=== PATIENT | female | born 1940 | race Caucasian/White ===

== ENCOUNTER 2021-08-15 13:12 | Outpatient (REF) | payer MEDICARE, SELFPAY ==
--- NOTE | ~2021-08-15 | MM_ITS ---
EXAMINATION: MM SCREENING DIGITAL BREAST TOMOSYNTHESIS, BILATERAL CLINICAL INFORMATION: Screening. Asymptomatic. The lifetime risk of breast cancer based on the Tyrer-Cuzick Model is 4%. COMPARISON: Mammography: 07/15/2020, 06/14/2019, 05/31/2019, 06/04/2017 TECHNIQUE: Digital breast tomosynthesis is performed in both the craniocaudal and mediolateral oblique views along with computer-aided detection (CAD). Synthesized 2D images are generated from the tomosynthesis. FINDINGS: There are scattered areas of fibroglandular density (ACR BI-RADS breast composition Category b). There are no significant masses, abnormal calcifications, or other abnormalities. There are scattered bilateral benign round and rim calcifications. The axilla and skin contours are unremarkable. No significant changes. MM/MM tomosynthesis screening BI IMPRESSION: No mammographic evidence of malignancy. ASSESSMENT: BI-RADS 1: Negative RECOMMENDATION: Routine annual mammography screening. This patient's information was entered into a reminder system with a target due date for their next mammogram.
== END 2021-08-15 13:13 | disposition home or self-care (01) ==
LOC: HO.MAMMO 13:12
PROVIDERS: PCP Internal Medicine; Visit Provider Family Medicine
DX: Z12.31 Encounter for screening mammogram for malignant neoplasm of breast (principal)
CPT/HCPCS: 77063; 77067

== ENCOUNTER 2021-10-20 09:25 | Outpatient (REF) | payer MEDICARE, SELFPAY ==
[2021-10-20 10:06] LABS: Binax Internal Control QC Valid; Binax Lot number: 9864; Binax Now Covid-19 Ag Negative (Negative)
== END 2021-10-20 09:26 | disposition home or self-care (01) ==
LOC: HO.LAB 09:25
PROVIDERS: Visit Provider Internal Medicine
DX: Z20.822 Contact with and (suspected) exposure to COVID-19 (principal)
CPT/HCPCS: 36415; C9803

== ENCOUNTER 2022-08-20 12:47 | Outpatient (REF) | payer MEDICARE, SELFPAY ==
--- NOTE | ~2022-08-20 | MM_ITS ---
EXAMINATION: MM SCREENING DIGITAL BREAST TOMOSYNTHESIS, BILATERAL CLINICAL INFORMATION: Screening. Asymptomatic. The lifetime risk of breast cancer based on the Tyrer-Cuzick Model is 3%. COMPARISON: Mammography: August 15, 2021 and studies dating back to July 07, 2015 TECHNIQUE: Digital breast tomosynthesis is performed in both the craniocaudal and mediolateral oblique views along with computer-aided detection (CAD). Synthesized 2D images are generated from the tomosynthesis. FINDINGS: There are scattered areas of fibroglandular density (ACR BI-RADS breast composition Category b). There are no significant masses, abnormal calcifications, or other abnormalities. MM/MM tomosynthesis screening BI IMPRESSION: No significant changes from prior exam. ASSESSMENT: BI-RADS 1: Negative RECOMMENDATION: Routine annual mammography screening. This patient's information was entered into a reminder system with a target due date for their next mammogram.
== END 2022-08-20 12:48 | disposition home or self-care (01) ==
LOC: HO.MAMMO 12:47
PROVIDERS: PCP Family Medicine; Visit Provider Family Medicine
DX: Z12.31 Encounter for screening mammogram for malignant neoplasm of breast (principal)
CPT/HCPCS: 77063; 77067

== ENCOUNTER 2023-08-22 13:22 | Outpatient (REF) | payer MEDICARE, OTHER, SELFPAY ==
--- NOTE | ~2023-08-22 | MM_ITS ---
EXAMINATION: MM SCREENING DIGITAL BREAST TOMOSYNTHESIS, BILATERAL CLINICAL INFORMATION: Screening. Asymptomatic. COMPARISON: Mammography: This study is compared with prior exams dating back to 2017. TECHNIQUE: Digital breast tomosynthesis is performed in both the craniocaudal and mediolateral oblique views along with computer-aided detection (CAD). Synthesized 2D images are generated from the tomosynthesis. FINDINGS: There are scattered areas of fibroglandular density (ACR BI-RADS breast composition Category b). There are no significant masses, abnormal calcifications, or other abnormalities. Bilateral, coarse, benign calcifications are present. MM/MM tomosynthesis screening BI IMPRESSION: No mammographic evidence of malignancy. ASSESSMENT: BI-RADS BI-RADS 2 - Benign Findings RECOMMENDATION: Routine annual mammography screening. 1 year F/U This examination should not preclude the clinical evaluation of a suspicious palpable abnormality. This patient's information was entered into a reminder system with a target due date for their next mammogram.
== END 2023-08-22 13:23 | disposition home or self-care (01) ==
LOC: HO.MAMMO 13:22
PROVIDERS: Visit Provider Family Medicine
DX: Z12.31 Encounter for screening mammogram for malignant neoplasm of breast (principal)
CPT/HCPCS: 77063; 77067

== ENCOUNTER → 2023-08-22 13:30 | Outpatient (BNV) | payer MEDICARE, OTHER, SELFPAY | PROVIDERS: Visit Provider Radiology Diagnostic Radiology | DX: Z12.31 Encounter for screening mammogram for malignant neoplasm of breast (principal) | CPT/HCPCS: 77063; 77067 ==

== ENCOUNTER 2023-09-30 15:33 | Inpatient (IN) | payer MEDICARE, OTHER, SELFPAY ==
--- NOTE | ~2023-09-30 | CT_ITS ---
head EXAMINATION: CT HEAD WITHOUT CONTRAST CT CERVICAL SPINE WITHOUT CONTRAST CLINICAL INFORMATION: Fall. COMPARISON: No similar priors. TECHNIQUE: Contiguous axial imaging was performed from the skull base to vertex without intravenous administration of contrast. Contiguous axial imaging was performed from the upper chest through the skull base without intravenous administration of contrast. Coronal and sagittal reformats were obtained at the acquisition workstation. This CT examination was performed using dose optimization techniques as appropriate, variously including the following: *Automated exposure control *Adjustment of mA and/or kV according to patient size (this includes techniques or standardized protocols for targeted exams where dose is matched to indication/reason for exam; i.e. extremities or head) *Use of iterative reconstruction technique DLP: 617 and 189 mGy-cm FINDINGS: Head: Trace amount of subarachnoid blood products in the left greater than right frontal sulci, for instance images 16 and 19 series 11. There is no evidence of edematous territorial infarction. A few foci of hypoattenuation in the periventricular and deep white matter are consistent with mild microangiopathy. Parker-white matter differentiation is preserved. Proportional prominence of the ventricles and sulcal spaces. No evidence for obstructive hydrocephalus. No abnormal mass effect or midline shift. No extra-axial fluid collections. Large left frontoparietal scalp hematoma. No evidence of displaced calvarial fracture. Opacification of a right posterior ethmoid air cell. Other paranasal sinuses, mastoids and middle ear cavities are clear. Cervical Spine: Straightening of the cervical lordosis. Mild anterolisthesis of C3 on C4 and C4 on C5 most likely degenerative in nature. No evidence of acute compression deformity or traumatic subluxation. Moderate to severe multilevel cervical spondylosis with various degrees of neural foraminal encroachment and central canal stenosis, with the more robust facet arthropathy noted on the right side from C3 through C5. There is no prevertebral soft tissue swelling. The thyroid gland and remaining cervical soft tissues are normal in appearance. Very complex appearance of the right lung apex with calcifications/surgical sutures surrounded by multifocal thickening/airspace opacities and architectural distortion. CT/CT cervical spine wo IV con IMPRESSION: 1. Trace amount of subarachnoid blood products in the left greater than right frontal sulci. 2. Large left frontoparietal scalp hematoma. 3. No acute cervical fractures or traumatic subluxation. 4. Moderate to severe multilevel cervical spondylosis. 5. Very complex appearance of the right lung apex with calcifications/surgical sutures surrounded by multifocal thickening/airspace opacities and architectural distortion. Recommend further evaluation with a full diagnostic chest CT. This critical result was discussed with Dr. Fernandez at 09/30/2023 7:02 PM and it was ascertained that the content and urgency of the report was understood at the time of direct communication.
--- NOTE | ~2023-09-30 | CT_ITS ---
EXAMINATION: CT HEAD WITHOUT CONTRAST CLINICAL INFORMATION: Subarachnoid hemorrhage follow-up. COMPARISON: CT scan of the head 09/30/2023. TECHNIQUE: Contiguous axial imaging was performed from the skull base to vertex without intravenous administration of contrast. This CT examination was performed using dose optimization techniques as appropriate, variously including the following: *Automated exposure control *Adjustment of mA and/or kV according to patient size (this includes techniques or standardized protocols for targeted exams where dose is matched to indication/reason for exam; i.e. extremities or head) *Use of iterative reconstruction technique DLP: 589 mGy-cm FINDINGS: Again there is a small volume of acute blood layering within the sulci over the frontal convexities near the vertex. No clear evidence of new or worsening intracranial hemorrhage. No intracranial mass effect or midline shift. No hydrocephalus. Numerous foci of hypoattenuation are visualized within the periventricular white matter mostly represent a chronic manifestation of small vessel ischemia. Parker-white matter differentiation is otherwise preserved and there is no evidence of acute territorial infarct. The calvarium and skull base are intact. Mastoid air cells and middle ear cavities are well aerated. Mild paranasal sinus disease primarily affecting the ethmoid air cells. A laceration of the left frontal scalp is noted. CT/CT head/brain wo IV con IMPRESSION: The volume of acute subarachnoid blood within the sulci over the frontal convexities near the vertex remains grossly unchanged. No new or worsening hemorrhage. No evidence of acute territorial infarct. Numerous chronic small vessel ischemic changes are visualized within the periventricular white matter.
[2023-09-30 15:49] VITALS: BP 121/61; BP 122/86; PULSE 86; PULSE 89; RESP 18; TEMP 36.6; O2SAT 97; O2SAT 98; BMI 27.6
[2023-09-30 16:27] VITALS: BP 121/61; PULSE 89; RESP 18; TEMP 36.6; O2SAT 97
--- NOTE | 2023-09-30 17:40 | ED_ITS ---
HPI - Fall General Chief Complaint: Fall Stated Complaint: fell outside w/ head strike on the curb. +collared Time Seen by Provider: 09/30/23 16:02 Source: patient Mode of arrival: EMS Limitations: no limitations History of Present Illness HPI Narrative: Patient comes to the emergency room complaining of a fall. Patient states that she was outside walking up a couple of stairs, patient tripped, had a mechanical fall, hit her head on the curb. Patient did not lose consciousness, patient is not on blood thinners. Patient states that she feels fairly well, minimal pain anywhere. Of note, patient was recently diagnosed with normal pressure hydrocephalus. At this time, patient states that she has no headache, no neck pain, patient does have a laceration in the scalp but states that it does not hurt much. Patient denies any musculoskeletal pain. Related Data Allergies Allergy/AdvReac Type Severity Reaction Status Date / Time shellfish derived Allergy Unknown PROJECTILE Verified 09/30/23 15:58 [SHELLFISH DERIVED] VOMITING,ABD PAIN Sulfa (Sulfonamide Allergy Unknown CHILD- Verified 09/30/23 15:58 Antibiotics) PASSED [SULFA(SULFONAMIDE OUT ANTIBIOTICS)] Review of Systems 2 Review of Systems: Constitutional : No Weight loss, No Fever, No Chills, No Night Sweats, No Fatigue, No Malaise ENT/Mouth : No Hearing loss, No Ear Pain, No Nasal Congestion, No Sinus Pain, No Hoarseness, No sore throat, No Rhinorrhea, No Swallowing Difficulty Eyes: No Eye Pain, No Swelling, No Redness, No Foreign Body, No Discharge, No Vision Changes Cardiovascular : No Chest Pain, No SOB, No Dyspnea on Exertion, No Orthopnea, No Edema, No Palpitations Respiratory : No Cough, No Sputum, No Wheezing, No Smoke Exposure, No Dyspnea Gastrointestinal : No Nausea, No Vomiting, No Diarrhea, No Constipation, No abdominal Pain, No Hematochezia, No Melena Genitourinary : no irregular bleeding, No Dysuria, No Urinary Frequency, No Hematuria, No Urinary Incontinence, No Urgency, No Flank Pain, No Urinary Flow Changes, No Hesitancy Musculoskeletal : No joint pain, No Myalgias, No Joint Swelling Skin : Complaining of a laceration to the scalp on the left Neuro : No Weakness, No Numbness, No Paresthesias, No Loss of Consciousness, No Dizziness, No Headache Psych : No Anxiety/Panic, No Depression, No SI/HI/AH/VH, No Social Issues, Heme/Lymph: No Bruising, No Bleeding,No Lymphadenopathy Endocrine : No Polyuria, No Polydipsia, No Temperature Intolerance [facility] Past Medical History Medical History (Updated 09/30/23 @ 20:24 by Samia Fernandez MD) Normal pressure hydrocephalus Social History Social History Alcohol intake: never Smoked in Last 30 Days: No Use of substances other than those prescribed or required for medical reasons: No Advance Directives: No Advance Directives Information Provided: No Physical Exam 2 Vital Signs: Vital Signs: Last Vital Signs Temp 97.8 F 09/30/23 16:27 Pulse 68 09/30/23 18:11 Resp 18 09/30/23 18:11 BP 121/63 09/30/23 18:11 Pulse Ox 98 09/30/23 18:11 O2 Del Method Room Air 09/30/23 18:11 BMI result Body Mass Index 27.6 Const: Other: Appearance: Alert. Oriented X3. No acute distress. Eyes: Pupils equal, round and reactive to light. ENT: Pharynx normal. Neck: On C-spine precaution, no C-spine tenderness, no palpable step-offs CVS: Normal heart rate and rhythm. Pulses normal. Normal S1 and S2 Respiratory: No respiratory distress. Breath sounds normal. No Wheezing. No rales Abdomen: Soft and nontender. No rigidity. No distention. Skin: There is a 1 cm laceration to the scalp on the left, being controlled Extremities: No lower extremity edema. No Lacerations. No Rash Neuro: Oriented X 3. No motor deficit. No sensory deficit. Moving all extremities. No slurred speech. CN 2 through 12 grossly intact Psych: calm, cooperative, normal affect Procedures Laceration Laceration 1: Site: scalp Side (If applicable): left Size (cm): 1 Description: stellate and irregular Depth: simple, single layer Local Anesthetic: lidocaine 1% and with epi Amount of anesthesia used (mL): 3 Pre-repair: wound explored Skin layer closed with: nylon Size (cm): 5-0 Number of sutures: 3 Technique: simple, interrupted Medical Decision Making Medical Decision Making MDM Narrative: -patient received 3 stitches to the laceration in the scalp, bleeding stopped -my interpretation of CT scan , possible small subarachnoid bleed -I discussed the CT report with our radiologist on-call. Patient does have a trace subarachnoid bleed. -patient is completely asymptomatic, no neurological deficits, normal vitals. -I discussed the patient with Dr. Aguiar from the ICU, patient being admitted to the ICU Differential Diagnosis Differential Diagnoses: The differential diagnosis associated with the presentation includes (Laceration, contusion, concussion, subarachnoid bleed) Admission/Observation Consideration of admission/observation: Escalation of care including admission/observation considered Consult Healthcare Provider Management of the patient was discussed with: Hospitalist Lab Data [facility] Lab Attestation statement: I reviewed the patient's lab results. 09/30/23 19:40 09/30/23 19:39 Labs: Lab Results 09/30/23 09/30/23 Range/Units 19:39 19:40 WBC 7.3 (4.8-10.8) X10*3/uL RBC 3.93 L (4.20-5.50) X10*6/uL Hgb 11.6 L (12.0-16.0) g/dl Hct 35.8 L (37.0-47.0) % MCV 91.1 (80.0-98.0) fL MCH 29.5 (27.0-33.0) pg MCHC 32.4 (31.0-35.0) g/dl RDW 12.4 (11.0-16.0) % Plt Count 153 L (160-400) X10*3/uL MPV 10.4 (9.4-12.3) fL Immature Gran % (Auto) 0.4 (0.0-0.4) % Neut % (Auto) 80.9 H (45-73) % Lymph % (Auto) 12.7 L (20-40) % [place] % (Auto) 4.7 (2-11) % Eos % (Auto) 1.0 (0-4) % Baso % (Auto) 0.3 (0-2) % Lymph # (Auto) 0.9 L (1.2-4.9) X10*3/uL [place] # (Auto) 0.3 (0.1-1.2) X10*3/uL Eos # (Auto) 0.1 (0.0-0.4) X10*3/uL Baso # (Auto) 0.0 (0.0-0.2) X10*3/uL Abs Immat Gran (auto) 0.03 (0.00-0.03) X10*3/uL Absolute Neuts (auto) 5.9 (2.0-8.3) x10*3/uL Absolute Nucleated RBC 0.000 (0.0-0.012) X10*3/uL Nucleated RBC % (auto) 0.0 (0.0-0.2) /100WBC PT 12.7 (11.1-13.3) SEC INR 1.0 (0.9-1.1) APTT 31.8 (26.0-36.4) SEC Sodium 144 (135-145) mmol/L Potassium 3.6 (3.3-5.1) mmol/L Chloride 103 (96-108) mmol/L Carbon Dioxide 31 H (22-29) mmol/L Anion Gap 14 (12-20) BUN 18 H (9-16) mg/dL Creatinine 0.95 (0.5-1.4) mg/dL Estim Creat Clear Calc 50.5 Estimated GFR 56 Random Glucose 92 (60-115) mg/dL Calcium 9.3 (8.4-10.2) mg/dL Total Bilirubin 0.6 (0.0-1.0) mg/dL Direct Bilirubin 0.2 (0.0-0.5) mg/dL AST 22 (5-31) U/L ALT 7 (0-31) U/L Alkaline Phosphatase 89 (39-117) U/L Troponin I High Sens 13.7 (<3.5-17.0) ng/L Total Protein 7.3 (6.5-8.0) g/dL Albumin 3.8 (3.5-5.0) g/dL Independent Interpretation I performed an independent interpretation of an: CT Scan Radiology Impression Discussion of test interpretation with radiology: I have reviewed the radiologist's reading. Radiologist Impression: Head: Trace amount of subarachnoid blood products in the left greater than right frontal sulci, for instance images 16 and 19 series 11. There is no evidence of edematous territorial infarction. A few foci of hypoattenuation in the periventricular and deep white matter are consistent with mild microangiopathy. Parker-white matter differentiation is preserved. Proportional prominence of the ventricles and sulcal spaces. No evidence for obstructive hydrocephalus. No abnormal mass effect or midline shift. No extra-axial fluid collections. Large left frontoparietal scalp hematoma. No evidence of displaced calvarial fracture. Opacification of a right posterior ethmoid air cell. Other paranasal sinuses, mastoids and middle ear cavities are clear. Cervical Spine: Straightening of the cervical lordosis. Mild anterolisthesis of C3 on C4 and C4 on C5 most likely degenerative in nature. No evidence of acute compression deformity or traumatic subluxation. Moderate to severe multilevel cervical spondylosis with various degrees of neural foraminal encroachment and central canal stenosis, with the more robust facet arthropathy noted on the right side from C3 through C5. There is no prevertebral soft tissue swelling. The thyroid gland and remaining cervical soft tissues are normal in appearance. Very complex appearance of the right lung apex with calcifications/surgical sutures surrounded by multifocal thickening/airspace opacities and architectural distortion. CT/CT head/brain wo IV con IMPRESSION: 1. Trace amount of subarachnoid blood products in the left greater than right frontal sulci. 2. Large left frontoparietal scalp hematoma. 3. No acute cervical fractures or traumatic subluxation. 4. Moderate to severe multilevel cervical spondylosis. 5. Very complex appearance of the right lung apex with calcifications/surgical sutures surrounded by multifocal thickening/airspace opacities and architectural distortion. Recommend further evaluation with a full diagnostic chest CT. This critical result was discussed with Dr. Fernandez at 09/30/2023 7:02 PM and it was ascertained that the content and urgency of the report was understood at the time of direct communication. Critical Care Time Critical Care Time Critical Care Time: Yes Total Critical Care Time: 60 Attestation: I have personally provided critical care time. Time includes review of lab data, radiology results, discussion with consultants, and monitoring for potential decompensation. Intervention performed as documented. Discharge Plan Discharge Clinical Impression: Subarachnoid bleed, Laceration of scalp Patient Disposition: Admitted As Inpatient
[2023-09-30 18:11] VITALS: BP 121/63; PULSE 68; RESP 18; O2SAT 98
[2023-09-30 19:45] LABS: MANUAL DIFF FLAG NO
[2023-09-30 19:46] LABS: Basophils Percent Auto 0.3 % (0-2); Eosinophils Absolute Auto 0.1 X10*3/uL (0.0-0.4); Hematocrit 35.8 % (37.0-47.0); Hemoglobin 11.6 g/dl (12.0-16.0); Imm Gran Abs Auto 0.03 X10*3/uL (0.00-0.03); Imm Gran Pct Auto 0.4 % (0.0-0.4); Lymphocytes Absolute Auto 0.9 X10*3/uL (1.2-4.9); Lymphocytes Percent Auto 12.7 % (20-40); Mean Corpuscular HGB Conc 32.4 g/dl (31.0-35.0); Mean Corpuscular Hemoglobin 29.5 pg (27.0-33.0); Mean Corpuscular Volume 91.1 fL (80.0-98.0); Mean Platelet Volume 10.4 fL (9.4-12.3); Monocytes Absolute Auto 0.3 X10*3/uL (0.1-1.2); Monocytes Percent Auto 4.7 % (2-11); Neutrophils Absolute Auto 5.9 x10*3/uL (2.0-8.3); Neutrophils Percent Auto 80.9 % (45-73); Platelet Count 153 X10*3/uL (160-400); Red Blood Count 3.93 X10*6/uL (4.20-5.50); Red Cell Distribution Width 12.4 % (11.0-16.0); White Blood Count 7.3 X10*3/uL (4.8-10.8)
[2023-09-30 19:53] LABS: Prothrombin Time 12.7 SEC (11.1-13.3)
[2023-09-30 19:56] LABS: Partial Thromboplastin Time 31.8 SEC (26.0-36.4)
[2023-09-30 20:01] LABS: Alanine Aminotransferase 7 U/L (0-31); Albumin Level 3.8 g/dL (3.5-5.0); Alkaline Phosphatase 89 U/L (39-117); Anion Gap 14 (12-20); Aspartate Amino Transferase 22 U/L (5-31); Bilirubin Direct 0.2 mg/dL (0.0-0.5); Bilirubin Total 0.6 mg/dL (0.0-1.0); Blood Urea Nitrogen 18 mg/dL (9-16); Calcium 9.3 mg/dL (8.4-10.2); Carbon Dioxide 31 mmol/L (22-29); Chloride 103 mmol/L (96-108); Creatinine Clr Calc Pharmacy 50.5; Estimated Glomerular Filt Rate 56; Glucose Random 92 mg/dL (60-115); Potassium 3.6 mmol/L (3.3-5.1); Sodium 144 mmol/L (135-145); Total Protein 7.3 g/dL (6.5-8.0)
[2023-09-30 20:07] LABS: Troponin-I High Sensitivity 13.7 ng/L (<3.5-17.0)
[2023-09-30] MEDS: Lidocaine HCl 1%/Epi 1:100,000 10 ML VIAL INFILTRATI (20:20)
--- NOTE | 2023-09-30 20:35 | P.HPCC_ITS ---
History of Present Illness Date of Service: 09/30/23 <Charly Hardin NP - Last Filed: 09/30/23 21:52> Attending physician on admission: Dejon Shaffer <Charly Hardin NP - Last Filed: 09/30/23 21:52> Chief Complaint: Fall <Charly Hardin NP - Last Filed: 09/30/23 21:52> The patient is a 83-year-old female with a past medical history of? COPD,? congestive heart failure, aortic valve replacement, normal pressure hydrocephalus ( manage the [facility]),? arthritis,? who presented to the? emergency room after a fall. Patient reported that she was outside walking up a couple of stairs, patient tripped, had a mechanical fall, hit her head on the curb? reports no loss of consciousness.? She is not taking any anticoagulation medication.? She sustained a laceration to the head.? ? CT of the head showed trace amount of subarachnoid blood products in the left greater? than right frontal sulci and large left frontoparietal scalp hematoma.? Patient neurological exam intact.? ?Vital signs are stable? and blood work stable. <Charly Hardin NP - Last Filed: 09/30/23 21:52> Review of Systems 2 Review of Systems: Yes all other systems are reviewed and are negative < Charly Hardin NP - Last Filed: 09/30/23 21:52> [facility] Past Medical History Medical History: Medical History (Updated 09/30/23 @ 21:16 by Charly Hardin NP) Congestive heart failure (CHF) COPD (chronic obstructive pulmonary disease) Normal pressure hydrocephalus <Charly Hardin NP - Last Filed: 09/30/23 21:52> Social History Social History: Social History Household Members: Family Housing: House Do you presently have visiting nurse or other home services: No Alcohol intake: never Patient Tobacco Use Status: Never used Tobacco Smoked in Last 30 Days: No Patient Interested in Nicotine Replacement: No Use of substances other than those prescribed or required for medical reasons: No Have you been hit, kicked, punched, or otherwise hurt by someone within the past year? If so, by whom?: No Do you feel safe in your current relationship?: Yes Is there a partner from a previous relationship who is making you feel unsafe now?: No Are you made to feel afraid or neglected: No Advance Directives: No Advance Directives Information Provided: No Advance Directives on File: No Do you have thoughts of harming others: None Do you have a plan to hurt others: No Plan Recently lost weight without trying: No Nutrition Risks: No Nutritional Risk Patient : No : No Poor oral hygiene: No service: No <Charly Hardin NP - Last Filed: 09/30/23 21:52> Meds Allergies/Adverse reactions: Allergies Allergy/AdvReac Type Severity Reaction Status Date / Time shellfish derived Allergy Unknown PROJECTILE Verified 09/30/23 15:58 [SHELLFISH DERIVED] VOMITING,ABD PAIN Sulfa (Sulfonamide Allergy Unknown CHILD- Verified 09/30/23 15:58 Antibiotics) PASSED [SULFA(SULFONAMIDE OUT ANTIBIOTICS)] <Charly Hardin NP - Last Filed: 09/30/23 21:52> Home medications: Home Medications Medication Instructions Recorded Confirmed Last Taken Type albuterol sulfate 90 mcg/actuation 2 puff inhalation Q4H PRN 09/30/23 09/30/23 Unknown History aerosol inhaler Shortness Of Breath Or Wheezing bumetanide 2 mg tablet 2 mg PO DAILY 09/30/23 09/30/23 09/30/23 History docusate sodium 100 mg capsule 100 mg PO BID PRN Constipation 09/30/23 09/30/23 Unknown History famotidine 20 mg tablet 40 mg PO BEDTIME 09/30/23 09/30/23 09/29/23 History methimazole 5 mg tablet 5 mg PO DAILY 09/30/23 09/30/23 09/30/23 History montelukast 10 mg tablet 10 mg PO DAILY 09/30/23 09/30/23 09/30/23 History omeprazole 40 mg capsule,delayed 40 mg PO DAILY 09/30/23 09/30/23 09/30/23 History release oxycodone 5 mg tablet 5 mg PO DAILY PRN pain 09/30/23 09/30/23 Unknown History sertraline 25 mg tablet 25 mg PO DAILY 09/30/23 09/30/23 09/30/23 History tiotropium 2.5 mcg-olodaterol 2.5 2 puff inhalation DAILY 09/30/23 09/30/23 09/30/23 History mcg/actuation mist for inhalation (Stiolto Respimat) <Charly Hardin NP - Last Filed: 09/30/23 21:52> Physical Exam 2 Vital Signs: Vital Signs: Last Vital Signs Temp 97.8 F 09/30/23 16:27 Pulse 68 09/30/23 18:11 Resp 18 09/30/23 18:11 BP 121/63 09/30/23 18:11 Pulse Ox 98 09/30/23 18:11 O2 Del Method Room Air 09/30/23 18:11 BMI result Body Mass Index 27.6 <Charly Hardin NP - Last Filed: 09/30/23 21:52> Constitutional: Alert, in no distress. Sitting comfortably on the hospital bed. Mental Status: Oriented to person, place and time. Head: Normocephalic. Eyes: Pupils are equal, round and reactive to light. Extraocular muscles intact. Ear, Nose and Throat: Oropharynx clear, mucous membranes moist. Ears and nose without masses, lesions or deformities. Trachea midline. Neck: Supple, Full range of motion. Respiratory: lungs CTA in all gordon Cardiovascular: S1 S2 regular. chronic aortic murmur. no rubs or gallops. Gastrointestinal: Abdomen soft, non-tender, non-distended. Normal bowel sounds. No pulsatile mass. No hepatosplenomegaly. Genitourinary: No costovertebral angle tenderness. Neurologic: Cranial nerves II-XII grossly intact. No focal neurological deficits. Moves all extremities spontaneously. Sensation intact bilaterally. Skin: laceration on left side forehead. No ulcers, edema . Musculoskeletal: No cyanosis or clubbing. No gross deformities. Normal range of motion. Heme/Lymphatics/Immun: Palpation of neck reveals no swelling or tenderness of neck nodes. Psychiatric: Normal mood and affect <Charly Hardin NP - Last Filed: 09/30/23 21:52> Results Labs CBC and Chem 7: 10/01/23 05:08 10/01/23 05:08 <Charly Hardin NP - Last Filed: 09/30/23 21:52> Labs: Laboratory Results - last 24 hr 09/30/23 09/30/23 19:39 19:40 MCV 91.1 MCH 29.5 MCHC 32.4 RDW 12.4 Plt Count 153 L MPV 10.4 Immature Gran % (Auto) 0.4 Neut % (Auto) 80.9 H Lymph % (Auto) 12.7 L [place] % (Auto) 4.7 Eos % (Auto) 1.0 Baso % (Auto) 0.3 Lymph # (Auto) 0.9 L [place] # (Auto) 0.3 Eos # (Auto) 0.1 Baso # (Auto) 0.0 Abs Immat Gran (auto) 0.03 Absolute Neuts (auto) 5.9 Absolute Nucleated RBC 0.000 Nucleated RBC % (auto) 0.0 PT 12.7 INR 1.0 APTT 31.8 Anion Gap 14 Estim Creat Clear Calc 50.5 Estimated GFR 56 Random Glucose 92 Calcium 9.3 Total Bilirubin 0.6 Direct Bilirubin 0.2 AST 22 ALT 7 Alkaline Phosphatase 89 Total Protein 7.3 Albumin 3.8 <Charly Hardin NP - Last Filed: 09/30/23 21:52> Imaging Radiologist's Impressions: Impressions Cervical Spine CT 09/30/23 17:53 IMPRESSION: 1. Trace amount of subarachnoid blood products in the left greater than right frontal sulci. 2. Large left frontoparietal scalp hematoma. 3. No acute cervical fractures or traumatic subluxation. 4. Moderate to severe multilevel cervical spondylosis. 5. Very complex appearance of the right lung apex with calcifications/surgical sutures surrounded by multifocal thickening/airspace opacities and architectural distortion. Recommend further evaluation with a full diagnostic chest CT. This critical result was discussed with Dr. Fernandez at 09/30/2023 7:02 PM and it was ascertained that the content and urgency of the report was understood at the time of direct communication. Head CT 09/30/23 17:53 IMPRESSION: 1. Trace amount of subarachnoid blood products in the left greater than right frontal sulci. 2. Large left frontoparietal scalp hematoma. 3. No acute cervical fractures or traumatic subluxation. 4. Moderate to severe multilevel cervical spondylosis. 5. Very complex appearance of the right lung apex with calcifications/surgical sutures surrounded by multifocal thickening/airspace opacities and architectural distortion. Recommend further evaluation with a full diagnostic chest CT. This critical result was discussed with Dr. Fernandez at 09/30/2023 7:02 PM and it was ascertained that the content and urgency of the report was understood at the time of direct communication. <Charly Hardin NP - Last Filed: 09/30/23 21:52> Assessment and Plan (1) Laceration of scalp: Status: Acute <Charly Hardin NP - Last Filed: 09/30/23 21:52> (2) Subarachnoid bleed: Status: Acute <Charly Hardin NP - Last Filed: 09/30/23 21:52> Neuro: Subarachnoid bleed left greater than right-? patient is neurologically intact. ? Not on anticoagulation medication. She does have a history of normal-pressure hydrocephalus,? with planned procedure for shunt next month. Frequent neuro checks.?? Cardiac: ?No acute issues Pulmonary:? ?No acute issues Renal:?? No acute issues? Endo:? No acute issues.?? GI:?No acute issues Heme/Onc:?? ?No acute issues ID: ? no acute issues Psych:? No acute issues. Miscellaneous:?? ?No acute issues Prophylaxis:? due to bleed will do compression device. No GI prophylaxis at this time ? Critical care time:? X 60 minutes of critical care time ? Code? status:? FULL CODE <hCarly Hardin NP - Last Filed: 09/30/23 21:52> Neuro: Subarachnoid bleed left greater than right-? patient is neurologically intact. ? Not on anticoagulation medication. She does have a history of normal-pressure hydrocephalus,? with planned procedure for shunt next month. Frequent neuro checks.?? Cardiac: ?No acute issues Pulmonary:? ?No acute issues Renal:?? No acute issues? Endo:? No acute issues.?? GI:?No acute issues Heme/Onc:?? ?No acute issues ID: ? no acute issues Psych:? No acute issues. Miscellaneous:?? ?No acute issues Prophylaxis:? due to bleed will do compression device. No GI prophylaxis at this time ? Code? status:? FULL CODE <Dejon Shaffer MD - Last Filed: 10/01/23 09:59>
--- NOTE | 2023-09-30 20:56 | PHA.MEDREC ---
Pharmacy Consult ? Medication Reconciliation Pharmacy has completed the medication reconciliation. Patient's had list of medications. Reports he can bring in the Stiolto in the morning. Ivonne Winston, aMrnieD
[2023-09-30 21:44] VITALS: BP 124/61; PULSE 77; RESP 12; TEMP 36.8; O2SAT 94
[2023-09-30 21:59] VITALS: BMI 16.5
[2023-09-30 22:00] VITALS: BP 117/64; PULSE 84; RESP 18; O2SAT 97
[2023-09-30] MEDS: Famotidine 20 MG TABLET 40 MG PO (22:50)
[2023-09-30 23:00] VITALS: BP 105/45; PULSE 85; RESP 14; O2SAT 99
[2023-10-01] VITALS (13 sets, daily range): BP systolic 96–127; BP diastolic 44–59; PULSE 64–90; RESP 13–24; TEMP 36.1–37.3; O2SAT 94–100; BMI 16.7
[2023-10-01 05:14] LABS: VBG HCO3 37 mmol/L (22-26); VBG pCO2 49 mmHg; VBG pH 7.48 (7.32-7.43); VBG pO2 54 mmHg
--- NOTE | 2023-10-01 05:14 | PC.NURSE ---
ADMIT TO 261-1 FROM ER DEPT...ALERT..ORIENTED X3..SPEECH CLEAR..BECKHAM WITH GOOD STRENGTH...LACERATION RX'D ER DEPT INTACT W/O BLEEDING....PASSED BEDSIDE SWALLOW EVAL...DRINKING WATER W/O DIFFICULTY...OOB TO BEDSIDE COMMODE TO VOID WITH STEADY GAIT...DENIES DISCOMFORT...PER ICU CERAMIC ENGINEER PATIENT ATE FOOD BROUGHT IN BY AND SON AT ...TOLERATED WELL....RESTFUL OVERNIGHT ..SERIAL Q2H NEURO CHECKS STABLE..DENIES/OFFERS NO COMPLAINTS
[2023-10-01 05:19] LABS: Venous Blood Gas Refer to POC result
[2023-10-01 05:35] LABS: Hemoglobin 11.3 g/dl (12.0-16.0); PLT CLUMP 1; SCAN SMEAR FLAG 1
[2023-10-01 05:37] LABS: Basophils Percent Auto 0.3 % (0-2); Eosinophils Absolute Auto 0.1 X10*3/uL (0.0-0.4); Eosinophils Percent Auto 2.3 % (0-4); Imm Gran Abs Auto 0.01 X10*3/uL (0.00-0.03); Imm Gran Pct Auto 0.2 % (0.0-0.4); Lymphocytes Absolute Auto 1.5 X10*3/uL (1.2-4.9); Lymphocytes Percent Auto 24.7 % (20-40); Mean Corpuscular HGB Conc 32.3 g/dl (31.0-35.0); Mean Corpuscular Hemoglobin 29.4 pg (27.0-33.0); Mean Corpuscular Volume 90.9 fL (80.0-98.0); Mean Platelet Volume 10.5 fL (9.4-12.3); Monocytes Absolute Auto 0.4 X10*3/uL (0.1-1.2); Monocytes Percent Auto 7.4 % (2-11); Neutrophils Absolute Auto 3.9 x10*3/uL (2.0-8.3); Neutrophils Percent Auto 65.1 % (45-73); Red Blood Count 3.85 X10*6/uL (4.20-5.50); Red Cell Distribution Width 12.2 % (11.0-16.0)
[2023-10-01 05:39] LABS: MANUAL DIFF FLAG NO; Platelet Count 164 X10*3/uL (160-400); White Blood Count 6.1 X10*3/uL (4.8-10.8)
[2023-10-01 06:01] LABS: Prothrombin Time 12.6 SEC (11.1-13.3)
[2023-10-01 06:05] LABS: Anion Gap 9 (12-20); Blood Urea Nitrogen 17 mg/dL (9-16); Carbon Dioxide 30 mmol/L (22-29); Chloride 105 mmol/L (96-108); Creatinine Clr Calc Pharmacy 40.5; Estimated Glomerular Filt Rate > 60; Glucose Random 94 mg/dL (60-115); Magnesium 2.3 mg/dL (1.6-2.6); Phosphorus 3.5 mg/dL (2.7-4.5); Potassium 3.3 mmol/L (3.3-5.1); Sodium 141 mmol/L (135-145)
[2023-10-01 06:54] LABS: Thyroid Stimulating Hormone 1.46 uIU/mL (0.32-4.0)
[2023-10-01] MEDS: Montelukast Sodium 10 MG TABLET PO (08:03)
[2023-10-01] MEDS: Sertraline HCL 25 MG TABLET PO (08:03)
[2023-10-01] MEDS: Potassium Chloride Packet 20 MEQ PACKET 40 MEQ PO (08:03)
[2023-10-01] MEDS: methIMAzole 5 MG TABLET PO (08:03)
--- NOTE | 2023-10-01 09:52 | MHC.CM.PN ---
IMM/ 10/01/23, EMR REVIEWED, PT ADMITTED W/ ACUTE SUBARACNOID BLEED, CM MET W/PT WHO IS A&O, PT REPORTS SHE LIVES W/HER AND 50YO SON, PT IS INDEP W/ALL CARE, DENIES USE OF DME HOWEVER DOES HAVE A CANE SHE USES ON OCCASION WHEN SHE IS REALLY STIFF AND HAS GRAB BARS IN [place], NO HOME SERVICES. GOAL FOR DC IS HOME NO SERVICES. PCP ON FILE INCORRECT AND PT REPORTS SHE SEE'S DR SHAQUILLE ESPINAL IN [place], PCP IS NANCY GREEN AND COPY REQUESTED, PT FULLY VACC FOR COVID19 INCLUDING THIS YEARS BOOSTER.
--- NOTE | 2023-10-01 10:00 | P.PNCC_ITS ---
Subjective Subjective Date of Service: 10/01/23 Interval History: 83-year-old lady with underlying history of COPD, congestive heart failure, status post AVR, normal pressure hydrocephalus (being seen at [facility]) admitted on 09/30/2023 after mechanical fall resulting in a scalp hematoma and small subarachnoid hemorrhage. Patient admitted to intensive care unit for close monitoring. No events overnight. No neurological symptoms. Critical Care Time (minutes): 0 Physical Exam 2 Vital Signs: Vital Signs: Last Vital Signs Temp 98.0 F 10/01/23 08:00 Pulse 71 10/01/23 09:00 Resp 13 10/01/23 09:00 BP 107/44 L 10/01/23 09:00 Pulse Ox 100 10/01/23 09:00 O2 Del Method Room Air 10/01/23 09:00 BMI result Body Mass Index 16.7 Const: General: no acute distress, alert and awake Eyes: Sclerae: sclerae normal EOM: EOMs intact bilaterally Neck: Neck: Yes no lymphadenopathy, Yes trachea midline and Yes supple Resp: Effort & Inspection: normal respiratory effort and no respiratory distress Auscultation: clear to auscultation bilaterally Cardio: Rate: regular rate Rhythm: regular rhythm Heart sounds: no gallops, no murmurs and no rubs GI: Palpation (GI): Soft to palpation and Other GI palpation findings present ( Nontender) Auscultation: normal bowel sounds Extrem: General: Yes no pedal edema, No clubbing and No cyanosis Objective Data Labs 10/01/23 05:08 10/01/23 05:08 Labs: Laboratory Results - last 24 hr 09/30/23 09/30/23 10/01/23 19:39 19:40 05:08 WBC 7.3 6.1 RBC 3.93 L 3.85 L Hgb 11.6 L 11.3 L Hct 35.8 L 35.0 L MCV 91.1 90.9 MCH 29.5 29.4 MCHC 32.4 32.3 RDW 12.4 12.2 Plt Count 153 L 164 MPV 10.4 10.5 Immature Gran % (Auto) 0.4 0.2 Neut % (Auto) 80.9 H 65.1 Lymph % (Auto) 12.7 L 24.7 [place] % (Auto) 4.7 7.4 Eos % (Auto) 1.0 2.3 Baso % (Auto) 0.3 0.3 Lymph # (Auto) 0.9 L 1.5 [place] # (Auto) 0.3 0.4 Eos # (Auto) 0.1 0.1 Baso # (Auto) 0.0 0.0 Abs Immat Gran (auto) 0.03 0.01 Absolute Neuts (auto) 5.9 3.9 Absolute Nucleated RBC 0.000 0.000 Nucleated RBC % (auto) 0.0 0.0 PT 12.7 12.6 INR 1.0 1.0 APTT 31.8 VBG pH 7.48 H VBG pCO2 49 VBG pO2 54 VBG HCO3 37 H VBG O2 Saturation 82.0 VBG Base Excess 12.0 Sodium 144 141 Potassium 3.6 3.3 Chloride 103 105 Carbon Dioxide 31 H 30 H Anion Gap 14 9 L BUN 18 H 17 H Creatinine 0.95 0.83 Estim Creat Clear Calc 50.5 40.5 Estimated GFR 56 > 60 Random Glucose 92 94 Calcium 9.3 9.0 Phosphorus 3.5 Magnesium 2.3 Total Bilirubin 0.6 Direct Bilirubin 0.2 AST 22 ALT 7 Alkaline Phosphatase 89 Troponin I High Sens 13.7 Total Protein 7.3 Albumin 3.8 TSH 1.46 Progress Note: A&P Assessment and plan (1) Subarachnoid bleed: Status: Acute (2) Congestive heart failure (CHF): Status: Acute (3) COPD (chronic obstructive pulmonary disease): Status: Acute (4) Normal pressure hydrocephalus: Status: Acute Plan Assessment: 83-year-old lady with underlying normal-pressure hydrocephalus admitted after mechanical fall resulting in a scalp hematoma and small subarachnoid hemorrhage Plan: Neuro: small subarachnoid hemorrhage, stable, no neurologic symptoms. Underlying normal pressure hydrocephalus with plans for later shunt. Cardiac: No acute issues. Underlying congestive heart failure. Continue home regimen. Pulmonary: No acute issues. Underlying COPD. Continue on a home regimen. Renal: No acute issues. Endo: No acute issues. Underlying hyperthyroidism, continue and methimazole. GI: No acute issues. ID: No acute issues Heme/Onc: No acute issues. Psych: No acute issues. Miscellaneous: No acute issues. Prophylaxis: Compression devices Diet: regular Quality Stroke Does the patient have a stroke diagnosis?: No VTE Prior VTE?: No VTE Risk Level:: Medical - moderate - high VTE Device Contraindication: N/A - Device Ordered VTE Drug Contraindication: Treatment Not Indicated
--- NOTE | 2023-10-01 10:32 | P.EN_ITS ---
Event Note Date of Service: 10/01/23 Event Note: 83-year-old female with a past medical history of? COPD,? congestive heart failure, aortic valve replacement, normal pressure hydrocephalus ( manage the [facility]? arthritis,? who presented to the? emergency room after a fall. Patient reported that she was outside walking up a couple of stairs, patient tripped, had a mechanical fall, hit her head on the curb? reports no loss of consciousness.? She is not taking any anticoagulation medication.? She sustained a laceration to the head.? ? CT of the head showed trace amount of subarachnoid blood products in the left greater? than right frontal sulci and large left frontoparietal scalp hematoma.? Patient neurological exam intact.? Vital signs are stable? and blood work stable. hospital course: 83-year-old lady with underlying normal-pressure hydrocephalus admitted after mechanical fall resulting in a scalp hematoma and small subarachnoid hemorrhage monitor overnight in ICU, noted to have no neurological symptoms, vitals remained stable therefore patient transferred to medical floor mechanical fall with small subarachnoid hemorrhage monitor neurological status closely, stable hematocrit, will obtain PT eval history of normal pressure hydrocephalus is scheduled for shunt placement at [facility], soft blood pressures will hold Bum COPD with no acute exacerbation continue home inhalers and Singulair history of hyperthyroidism continue methimazole. Time Spent With Patient Time: Total time managing care of this patient today ____ minutes.
--- NOTE | 2023-10-01 10:36 | MHC.CLN ---
PT IS MODERATELY MALNOURISHED PT WITH MODERATELY DEPLETED SUBCUTANEOUS FAT AND MUSCLE MASS WITH POSSIBLE REPORTED 30% SIGNIFICANT WT LOSS AND BMI 16 PT REPORTS POSSIBLE 50# WT LOSS BUT CAN NOT ACCOUNT TIMEFRAME PT REPORTS CURRENT UBW RANGE 100-110# PT APPEARS FRAIL AND THIN DIET RX: CARDIAC-APPROPRIATE RECOMMEND ADDING ENSURE BID TO INCREASE KCALS SUPP TO PROVIDE 700KCALS, 40G PROTEIN MONITOR PO INTAKE AND ENCOURAGE SUPPLEMENTS SEE ALSO FULL CLINICAL NUTRITION ASSESSMENT
--- NOTE | 2023-10-01 10:40 | P.CDIM_ITS ---
PROVIDER RESPONSE TEXT: To clarify, the appropriate diagnosis supported by the clinical indicators: Other (explain): Chronic, unclear if systolic or diastolic QUERY TEXT: PHYSICIAN'S DOCUMENTATION REQUEST Date of Query: 10/01/2023 10:11 AM EST Patient Name: Nicolle Rizo Admit Date: 10/01/2023 Dear Dejon Shaffer, A review of the medical record indicates additional documentation may be needed. Please review below and update the documentation accordingly. Clinical Indicators: PN: Assessment and plan: Congestive heart failure PMH: CHF No acute issues, underlying CHF, continue home regimen. Please provide further specificity regarding the most likely type and acuity of CHF you are evaluatin g, treating, or monitoring. Systolic Please specify if Acute, Chronic, or Acute on chronic, or Unable to determine Diastolic Please specify if Acute, Chronic, or Acute on chronic, or Unable to determine Combined Systolic/Diastolic Please specify if Acute, Chronic, or Acute on chronic, or Unable to determine Unable to determine Other (explain) Clinically unable to determine (explain) Thank you, Zuleika Reynaga, CCS, CDIS Use of terms such as suspected, likely, concern for, or probable (associated with a specific diagnosi s that is being evaluated, monitored, or treated as if it exists) are acceptable and can be coded in the inpatient se tting, when documented at the time of discharge. Please use your independent medical judgment in providing your response. THIS QUERY IS PART OF THE PERMANENT MEDICAL RECORD
--- NOTE | 2023-10-01 10:40 | P.CDIM_ITS ---
PROVIDER RESPONSE TEXT: To clarify, the appropriate diagnosis supported by the clinical indicators: Underweight QUERY TEXT: PHYSICIAN'S DOCUMENTATION REQUEST Date of Query: 10/01/2023 10:09 AM EST Patient Name: Nicolle Rizo Admit Date: 10/01/2023 Dear Dejon Shaffer, A review of the medical record indicates additional documentation may be needed. Please review below and update the documentation accordingly. Clinical Indicators: Nursing notes Height and Weight: BMI 16.7 5ft 7in 48.3kg Underweight If possible, please provide an associated diagnosis related to the abnormal BMI, such as: Underweight Weight loss Cachexia Anorexia Other (explain) Clinically unable to determine (explain) Thank you, Zuleika Reynaga, CCS, CDIS Use of terms such as suspected, likely, concern for, or probable (associated with a specific diagnosi s that is being evaluated, monitored, or treated as if it exists) are acceptable and can be coded in the inpatient se tting, when documented at the time of discharge. Please use your independent medical judgment in providing your response. THIS QUERY IS PART OF THE PERMANENT MEDICAL RECORD
[2023-10-01] MEDS: oxyCODONE HCl Immed Release 5 MG TABLET PO (14:41)
[2023-10-01] MEDS: Famotidine 20 MG TABLET 40 MG PO (21:28)
[2023-10-02 03:31] VITALS: BP 124/58; PULSE 70; RESP 14; TEMP 36.1; O2SAT 96
[2023-10-02 05:26] LABS: MANUAL DIFF FLAG NO
[2023-10-02 05:32] LABS: Basophils Percent Auto 0.6 % (0-2); Eosinophils Absolute Auto 0.2 X10*3/uL (0.0-0.4); Eosinophils Percent Auto 3.7 % (0-4); Hematocrit 35.4 % (37.0-47.0); Hemoglobin 11.7 g/dl (12.0-16.0); Imm Gran Abs Auto 0.01 X10*3/uL (0.00-0.03); Imm Gran Pct Auto 0.2 % (0.0-0.4); Lymphocytes Absolute Auto 1.5 X10*3/uL (1.2-4.9); Lymphocytes Percent Auto 31.6 % (20-40); Mean Corpuscular HGB Conc 33.1 g/dl (31.0-35.0); Mean Corpuscular Hemoglobin 30.7 pg (27.0-33.0); Mean Corpuscular Volume 92.9 fL (80.0-98.0); Mean Platelet Volume 10.4 fL (9.4-12.3); Monocytes Absolute Auto 0.3 X10*3/uL (0.1-1.2); Monocytes Percent Auto 6.2 % (2-11); Neutrophils Absolute Auto 2.8 x10*3/uL (2.0-8.3); Neutrophils Percent Auto 57.7 % (45-73); Platelet Count 142 X10*3/uL (160-400); Red Blood Count 3.81 X10*6/uL (4.20-5.50); Red Cell Distribution Width 12.4 % (11.0-16.0); White Blood Count 4.9 X10*3/uL (4.8-10.8)
[2023-10-02] MEDS: Omeprazole 40 MG CAPSULE.DR PO (05:42)
[2023-10-02 06:02] LABS: Anion Gap 10 (12-20); Blood Urea Nitrogen 18 mg/dL (9-16); Calcium 9.2 mg/dL (8.4-10.2); Carbon Dioxide 31 mmol/L (22-29); Chloride 105 mmol/L (96-108); Creatinine Clr Calc Pharmacy 39.5; Estimated Glomerular Filt Rate > 60; Glucose Random 87 mg/dL (60-115); Potassium 3.8 mmol/L (3.3-5.1); Sodium 142 mmol/L (135-145)
[2023-10-02 07:43] VITALS: BP 114/55; PULSE 70; RESP 18; TEMP 36.8; O2SAT 99
[2023-10-02] MEDS: Montelukast Sodium 10 MG TABLET PO (09:01)
[2023-10-02] MEDS: Sertraline HCL 25 MG TABLET PO (09:01)
[2023-10-02] MEDS: methIMAzole 5 MG TABLET PO (09:01)
[2023-10-02 09:23] VITALS: BP 114/55; PULSE 70; O2SAT 99
--- NOTE | 2023-10-02 11:47 | P.DS_ITS ---
DS: Providers Provider Date of Service: 10/02/23 Date of admission: 09/30/23 19:48 Primary care physician: Guy Mitchell MD DS: Diagnosis Discharge Diagnosis (1) Subarachnoid bleed: Status: Acute (2) Congestive heart failure (CHF): Status: Acute (3) COPD (chronic obstructive pulmonary disease): Status: Acute (4) Normal pressure hydrocephalus: Status: Acute DS: Summary Hospital Course Hospital Course: history of presenting illness: Date of Service: 09/30/23 Attending physician on admission: Dejon Shaffer Chief Complaint: Fall The patient is a 83-year-old female with a past medical history of? COPD,? congestive heart failure, aortic valve replacement, normal pressure hydrocephalus ( manage the [facility]),? arthritis,? who presented to the? emergency room after a fall. Patient reported that she was outside walking up a couple of stairs, patient tripped, had a mechanical fall, hit her head on the curb? reports no loss of consciousness.? She is not taking any anticoagulation medication.? She sustained a laceration to the head.? ? CT of the head showed trace amount of subarachnoid blood products in the left greater? than right frontal sulci and large left frontoparietal scalp hematoma.? Patient neurological exam intact.? ?Vital signs are stable? and blood work stable. hospital course: 83-year-old lady with underlying normal-pressure hydrocephalus admitted after mechanical fall resulting in a left small scalp laceration requiring 3 sutures in emergency room and small subarachnoid hemorrhage, she was monitored overnight in ICU, noted to have no neurological symptoms, vitals remained stable ,therefore patient transferred to medical floor, patient remained stable with no change in neuro status, repeat CT head showed unchanged small subarachnoid hemorrhage, hematocrit remains stable, patient evaluated by Physical therapy they recommended home PT therefore patient is being discharged home with VNA services, recommend close outpatient follow-up with PCP history of normal pressure hydrocephalus is scheduled for shunt placement at [facility], noted to have soft blood pressures therefore dose of Bumex reduced to 1 mg daily baseline dose 2 mg daily COPD with no acute exacerbation continue home inhalers and Singulair. history of hyperthyroidism continue methimazole. Time Attestation Discharge coordination time: Greater than 30 minutes Quality: Safe Use of Opioids Does Pt have an Active Cancer Diagnosis on the Problem List?: No Quality: Stroke Does the patient have a stroke diagnosis?: No Physical Exam Vital Signs: Vital Signs: Last Vital Signs Temp 98.3 F 10/02/23 07:43 Pulse 70 10/02/23 09:23 Resp 18 10/02/23 07:43 BP 114/55 L 10/02/23 09:23 Pulse Ox 99 10/02/23 09:23 O2 Del Method Room Air 10/02/23 07:43 BMI result Body Mass Index 16.7 Const: Other: General awake alert x3, in no acute distress. Small left scalp laceration healing well Neck no JVD. CVS regular rate rhythm, Respiratory lungs clear to auscultation, no respiratory distress, no wheeze, no rhonchi. Gastrointestinal abdomen soft, nontender, bowel sounds audible, no guarding , no rigidity. Extremities no edema. Neuro nonfocal Psych appropriate affect DS: Data Data Completed and Pending Labs on day of discharge: Laboratory Results - last 24 hr 10/02/23 05:18 WBC 4.9 RBC 3.81 L Hgb 11.7 L Hct 35.4 L MCV 92.9 MCH 30.7 MCHC 33.1 RDW 12.4 Plt Count 142 L MPV 10.4 Immature Gran % (Auto) 0.2 Neut % (Auto) 57.7 Lymph % (Auto) 31.6 [place] % (Auto) 6.2 Eos % (Auto) 3.7 Baso % (Auto) 0.6 Lymph # (Auto) 1.5 [place] # (Auto) 0.3 Eos # (Auto) 0.2 Baso # (Auto) 0.0 Abs Immat Gran (auto) 0.01 Absolute Neuts (auto) 2.8 Absolute Nucleated RBC 0.000 Nucleated RBC % (auto) 0.0 Sodium 142 Potassium 3.8 Chloride 105 Carbon Dioxide 31 H Anion Gap 10 L BUN 18 H Creatinine 0.85 Estim Creat Clear Calc 39.5 Estimated GFR > 60 Random Glucose 87 Calcium 9.2 Discharge Plan Discharge Anticipated Discharge Date/Time: 10/02/23 11:40 Patient Disposition: Home Health Service Discharge Diagnosis: acute subarachnoid bleed mechanical fall moderate malnutrition Referrals: Jail[facility] FLAHERTY [Outside] Guy Mitchell MD [Primary Care Provider] - 1 Week Discharge Medications: New bumetanide 1 mg tablet 1 mg PO DAILY Qty: 30 0RF Continued omeprazole 40 mg capsule,delayed release(DR/EC) 40 mg PO DAILY famotidine 20 mg tablet 40 mg PO BEDTIME methimazole 5 mg tablet 5 mg PO DAILY docusate sodium 100 mg capsule 100 mg PO BID PRN (Reason: Constipation) sertraline 25 mg tablet 25 mg PO DAILY montelukast 10 mg tablet 10 mg PO DAILY albuterol sulfate 90 mcg/actuation HFA aerosol inhaler 2 puff inhalation Q4H PRN (Reason: Shortness Of Breath Or Wheezing) oxycodone 5 mg tablet 5 mg PO DAILY PRN (Reason: pain) Stiolto Respimat 2.5-2.5 mcg/actuation mist 2 puff inhalation DAILY Discontinued bumetanide 2 mg tablet 2 mg PO DAILY Discharge Orders: Discharge Order (Routine); Ordered 10/02/23 Ordered By: Josue Rose Diet: Advance to usual diet Activity on Discharge: As tolerated Stand Alone Forms: Patient Portal Discharge page Care Plan Goals: mechanical fall seen by Physical therapy being discharged home with home PT and VNA services decrease dose of Bumex to 1 mg daily due to soft blood pressures stable subarachnoid hemorrhage small laceration left scalp 3 sutures applied in ED follow up with pcp Health Concerns: normal pressure hydrocephalus Plan of Treatment: outpatient follow-up with primary care physician Assessment: as above Discharge Date/Time: 10/02/23 12:14
--- NOTE | 2023-10-02 12:10 | MHC.CM.PN ---
PT TO DC HOME TODAY, HOME PT HAS BEEN RECOMMENDED CM MET WITH PT AND HER TO DISCUSS DC PLAN THEY REPORT THEY HAVE HAD VNA IN THE PAST AND IT WAS NOT A GOOD EXPERIENCE THEY ARE UNSURE IF IT WAS [facility] PER DISCUSSION, THEY ARE AGREEABLE TO HOME SERVICES AND AWARE THEY CAN DISCONTINUE THEM AT ANY TIME PT WILL DC WITH [facility] FOR HOME PT WILL TRANSPORT
--- NOTE | 2023-10-02 16:00 | W.MHC.F2F ---
Service Date Service Date: 10/02/23 Encounter Date of encounter: 10/02/23 Reasons for Services Signs and symptoms assessed: Unsteady gait and fall, history of NPH, small subarachnoid hemorrhage Reason for physical therapy: home safety and mobility and gait/transfer training Homebound: Leaving the home is medically contraindicated at this time without the asist of a device and/or another person due th the listed conditions above and below. Reason homebound: weakness related to hospital stay Homebound supporting statement: Unsteady gait and risk for fall Certification: Based on the above findings, I certify that this patient is confined to the home and needs intermittent senior care care, physical therapy and/or speech therapy, or continues to need occupational therapy. The patient is under my care, and I have initiated the establishment of the plan of care. The patient will be followed by a physician who will periodically review the plan of care. Time Spent With Patient Time: Total time managing care of this patient today ____ minutes.
== END 2023-10-02 12:14 | disposition home health service (06) | DRG 86 ==
LOC: HO.ED 20:24 → HO.EDOVER 20:43 → HO.ICU 20:48 → HO.S3 10-01 12:47
PROVIDERS: Internal Medicine Pulmonary Disease; Admitting Provider Registered Nurse Community Health; Emergency Provider Emergency Medicine; PCP Family Medicine; Visit Provider Hospitalist
DX: S06.6X0A Traumatic subarachnoid hemorrhage without loss of consciousness, initial encounter (principal); G91.2 (Idiopathic) normal pressure hydrocephalus; I50.32 Chronic diastolic (congestive) heart failure; I50.22 Chronic systolic (congestive) heart failure; Z68.1 Body mass index [BMI] 19.9 or less, adult; W19.XXXA Unspecified fall, initial encounter; S01.01XA Laceration without foreign body of scalp, initial encounter; J44.9 Chronic obstructive pulmonary disease, unspecified; E05.90 Thyrotoxicosis, unspecified without thyrotoxic crisis or storm; R63.6 Underweight; Z95.2 Presence of prosthetic heart valve; Z79.899 Other long term (current) drug therapy
CPT/HCPCS: 36415; 70450; 72125; 80048; 80076; 82803; 83735; 84100; 84443; 84484; 85025; 85610; 85730; 97162; 99285

== ENCOUNTER → 2023-09-30 19:48 | Outpatient (BNV) | payer MEDICARE, OTHER, SELFPAY | PROVIDERS: Admitting Provider Registered Nurse Community Health; Emergency Provider Emergency Medicine; PCP Thoracic Surgery (Cardiothoracic Vascular Surgery); Visit Provider Hospitalist | DX: I60.9 Nontraumatic subarachnoid hemorrhage, unspecified (principal); I50.9 Heart failure, unspecified; J44.9 Chronic obstructive pulmonary disease, unspecified; G91.2 (Idiopathic) normal pressure hydrocephalus | CPT/HCPCS: 99239; 99499; G0180 ==

== ENCOUNTER → 2023-09-30 19:48 | Outpatient (BNV) | payer MEDICARE, OTHER, SELFPAY | PROVIDERS: Admitting Provider Registered Nurse Community Health; Emergency Provider Emergency Medicine; PCP Thoracic Surgery (Cardiothoracic Vascular Surgery); Visit Provider Registered Nurse Community Health | DX: I60.9 Nontraumatic subarachnoid hemorrhage, unspecified (principal); S01.01XA Laceration without foreign body of scalp, initial encounter | CPT/HCPCS: 99291 ==

== ENCOUNTER → 2023-09-30 19:48 | Outpatient (BNV) | payer MEDICARE, OTHER, SELFPAY | PROVIDERS: Admitting Provider Registered Nurse Community Health; Emergency Provider Emergency Medicine; PCP Thoracic Surgery (Cardiothoracic Vascular Surgery); Visit Provider Internal Medicine Pulmonary Disease | DX: I60.9 Nontraumatic subarachnoid hemorrhage, unspecified (principal); I50.9 Heart failure, unspecified; J44.9 Chronic obstructive pulmonary disease, unspecified; G91.2 (Idiopathic) normal pressure hydrocephalus | CPT/HCPCS: 99232 ==

== ENCOUNTER 2024-08-27 12:17 | Outpatient (REF) | payer MEDICARE, SELFPAY ==
--- NOTE | ~2024-08-27 | MM_ITS ---
EXAMINATION: MM SCREENING DIGITAL BREAST TOMOSYNTHESIS, BILATERAL CLINICAL INFORMATION: Screening. Asymptomatic. COMPARISON: Mammography: Comparison is made with available priors TECHNIQUE: Digital breast mammography with tomosynthesis is performed in both the craniocaudal and mediolateral oblique views along with computer-aided detection (CAD). FINDINGS: The breasts are heterogeneously dense, which may obscure small masses (ACR BI-RADS breast composition Category c). There are no significant masses, abnormal calcifications, or other abnormalities. MM/MM tomosynthesis screening BI IMPRESSION: No mammographic evidence of malignancy. ASSESSMENT: BI-RADS BI-RADS 1 - Negative RECOMMENDATION: Routine annual mammography screening. 1 year F/U This examination should not preclude the clinical evaluation of a suspicious palpable abnormality. This patient's information was entered into a reminder system with a target due date for their next mammogram. Electronically signed by: Ruth Rojo DO 09/07/2024 09:13 AM [facility]
== END 2024-08-27 12:18 | disposition home or self-care (01) ==
LOC: HO.MAMMO 12:17
PROVIDERS: PCP Family Medicine; Visit Provider Family Medicine
DX: Z12.31 Encounter for screening mammogram for malignant neoplasm of breast (principal)
CPT/HCPCS: 77063; 77067

== ENCOUNTER → 2024-08-27 12:30 | Outpatient (BNV) | payer MEDICARE, SELFPAY | PROVIDERS: PCP Family Medicine; Visit Provider Internal Medicine | DX: Z12.31 Encounter for screening mammogram for malignant neoplasm of breast (principal) | CPT/HCPCS: 77063; 77067 ==